=== PATIENT | male | born 1950 | race Two or more races ===

== ENCOUNTER 2025-04-11 17:29 | Inpatient (IN) | payer OTHER ==
[~2025-04-11] VITALS: Ht 182.9 cm; Wt 81.6 kg
[2025-04-11] MEDS: IV NS 0.9% 1,000 ML BAG IV ONE ×3 (17:51→19:13)
[2025-04-11 17:59] LABS: SITE, VBG VBG - N/A; VBG BASE EXCESS -6.0 mmol/L (-2.0-3.0); VBG HCO3 16.9 mmol/L (22.0-29.0); VBG MetHb 0.0 % (0.5-1.5); VBG OXYGEN SATURATION 93.7 % (60.0-85.0); VBG PCO2 26.5 mmHg (38.0-54.0); VBG PH 7.423 (7.320-7.430); VBG PO2 72.7 mmHg (23.0-48.0); VBG TOTAL HEMOGLOBIN 12.4 G/dL (13.5-17.5)
[2025-04-11 18:04] LABS: PLATELET COUNT (AUTO) 413 K/uL (150-450); RED BLOOD CELL COUNT(AUTO) 3.71 MIL/uL (4.5-6.0); RED CELL DISTRIBUTION WIDTH 13.4 % (11.5-15.0); WHITE BLOOD COUNT (AUTO) 10.2 K/uL (4.3-11.0)
[2025-04-11] MEDS ORDERED: INSULIN REGULAR, HUMAN 100 UNIT/ML 10 ML VIAL ONE (18:33)
[2025-04-11 18:37] LABS: CALCIUM, SERUM 8.7 mg/dL (8.5-10.1); CREATININE 1.5 mg/dL (0.6-1.3); SODIUM SERUM 128.0 mmol/L (136-145); UREA NITROGEN, BLOOD 26.0 mg/dL (7-18)
[2025-04-11] MEDS: INSULIN REGULAR, HUMAN 100 UNIT/ML 10 ML VIAL IV ONE (18:40)
[2025-04-11 18:41] LABS: ASPARTATE AMINOTRANSFERASE 16.0 U/L (15-37); TOTAL PROTEIN, SERUM 8.0 g/dL (6.4-8.2)
[2025-04-11 19:38] LABS: APPEARANCE,URINE CLEAR (CLEAR); BLOOD, URINE Trace-intact Ery/uL (NEGATIVE); LEUKOCYTE ESTERASE ,URINE Negative (NEGATIVE); UGLUCOSE >=1000 mg/dL (NEGATIVE)
[2025-04-11 19:39] LABS: NITRITE, URINE NEGATIVE (NEGATIVE)
[2025-04-11 19:40] LABS: ADD URINE CULTURE NO; SQUAMOUS EPITHELIAL CELL,UR Rare /HPF (None Seen)
[2025-04-11 21:24] LABS: CALCIUM, SERUM 8.1 mg/dL (8.5-10.1); CREATININE 1.3 mg/dL (0.6-1.3); SODIUM SERUM 136.0 mmol/L (136-145); UREA NITROGEN, BLOOD 21.0 mg/dL (7-18)
[2025-04-11] MEDS ORDERED: MAG HYDROX/AL HYDROX/SIMETH 30 ML UDC PO PRN (21:30)
[2025-04-11] MEDS ORDERED: DEXTROSE 50%-WATER 50 ML DISP.SYRIN IV PRN ×2 (21:30)
[2025-04-11] MEDS ORDERED: ZOLPIDEM TARTRATE 5 MG TABLET PO PRN (21:30)
[2025-04-11] MEDS ORDERED: Z GUARD REMEDY 4 OZ OINT TP PRN (21:30)
[2025-04-11] MEDS ORDERED: MAGNESIUM HYDROXIDE 30 ML UDC PO PRN (21:30)
[2025-04-11] MEDS ORDERED: BLOOD SUGAR DIAGNOSTIC 1 EACH STRIP VI SCH (22:00)
[2025-04-11 22:45] VITALS: BP 123/65; TEMP 97.5; O2SAT 96
[2025-04-11] MEDS: ENOXAPARIN SODIUM 40 MG/0.4 ML DISP.SYRIN SQ SCH (23:28)
[2025-04-11] MEDS: INSULIN GLARGINE, 100 UNIT/ML CARTRIDGE SQ SCH (23:34)
[2025-04-12] VITALS: BP 133/69; TEMP 97.9; O2SAT 98
[2025-04-12] MEDS: BLOOD SUGAR DIAGNOSTIC 1 EACH STRIP IN SCH (00:59)
[2025-04-12] MEDS: *INSULIN REGULAR(HUMULIN R)HUM 100 UNIT/ML VIAL SQ PRN (01:08)
[2025-04-12] MEDS: IV NS 0.9% 1,000 ML IV PRN (01:10)
[2025-04-12 04:00] VITALS: BP 124/68; TEMP 97.5; O2SAT 100
[2025-04-12 07:11] LABS: PLATELET COUNT (AUTO) 293 K/uL (150-450); RED BLOOD CELL COUNT(AUTO) 3.09 MIL/uL (4.5-6.0); RED CELL DISTRIBUTION WIDTH 13.4 % (11.5-15.0); WHITE BLOOD COUNT (AUTO) 6.0 K/uL (4.3-11.0)
[2025-04-12 07:30] VITALS: BP 133/61; TEMP 98.1; O2SAT 96
[2025-04-12 08:38] LABS: CALCIUM, SERUM 8.1 mg/dL (8.5-10.1); CREATININE 1.1 mg/dL (0.6-1.3); PHOSPHORUS 2.5 mg/dL (2.5-4.9); SODIUM SERUM 139.0 mmol/L (136-145); UREA NITROGEN, BLOOD 17.0 mg/dL (7-18)
[2025-04-12] MEDS: PANTOPRAZOLE 40 MG TABLET.DR PO SCH (09:45)
[2025-04-12] MEDS: INSULIN REGULAR, HUMAN 100 UNIT/ML 3 ML VIAL SQ PRN (09:54)
[2025-04-12 20:00] VITALS: BP 135/78; TEMP 98.1; O2SAT 97
[2025-04-12] MEDS: ACETAMINOPHEN 325 MG TABLET PO PRN (20:01)
[2025-04-12] MEDS: HYDROCODONE/APAP 10/325MG TABLET PO ONE (23:20)
[2025-04-13] VITALS: BP 124/62; TEMP 97.9; O2SAT 95
[2025-04-13 04:00] VITALS: BP 152/70; TEMP 97.8; O2SAT 97
[2025-04-13 04:01] VITALS: BP 150/70; TEMP 97.8; O2SAT 97
[2025-04-13 08:00] VITALS: BP 139/70; TEMP 97.5; O2SAT 98
[2025-04-13] MEDS: ONDANSETRON HCL/PF 4 MG/2 ML VIAL IVP PRN (12:33)
[2025-04-13 14:00] VITALS: BP 154/91; TEMP 97.9; O2SAT 97
[2025-04-13 20:00] VITALS: BP 145/83; TEMP 97.6; O2SAT 98
[2025-04-13] MEDS: HYDROCODONE/APAP 10/325MG TABLET PO ONE (22:30)
[2025-04-13] MEDS ORDERED: NALOXONE HCL 0.4 MG/ML AMPUL IV PRN (22:30)
[2025-04-13] MEDS ORDERED: oxyCODONE HCL SR 10MG TAB.SR.12H PO SCH (22:30)
[2025-04-13] MEDS: oxyCODONE IR immediate release 5 MG TABLET PO SCH (23:27)
[2025-04-14] MEDS: GABAPENTIN 100 MG CAPSULE PO SCH (01:01)
[2025-04-14 08:00] VITALS: BP 142/63; TEMP 97.9; O2SAT 99
[2025-04-14] MEDS ORDERED: DOSING PER PHARMACY-VANCOMYCIN IV XX PRN (15:30)
[2025-04-14 16:00] VITALS: BP 162/80; TEMP 98.4; O2SAT 98
[2025-04-14] MEDS ORDERED: CEFTRIAXONE 1 G in IV D5W 50 ML IV SCH (16:00)
[2025-04-14 16:13] LABS: PLATELET COUNT (AUTO) 271 K/uL (150-450); RED BLOOD CELL COUNT(AUTO) 3.15 MIL/uL (4.5-6.0); RED CELL DISTRIBUTION WIDTH 13.8 % (11.5-15.0); WHITE BLOOD COUNT (AUTO) 5.1 K/uL (4.3-11.0)
[2025-04-14 16:18] VITALS: BP 162/80; TEMP 98.4; O2SAT 98
[2025-04-14] MEDS ORDERED: DOSING PER PHARMACY-CEFEPIME IVPB XX PRN (16:30)
[2025-04-14] MEDS ORDERED: CEFEPIME 1 GM in IV D5W 50 ML IV SCH (16:30)
[2025-04-14 17:10] LABS: CALCIUM, SERUM 8.4 mg/dL (8.5-10.1); CREATININE 0.9 mg/dL (0.6-1.3); SODIUM SERUM 142.0 mmol/L (136-145); UREA NITROGEN, BLOOD 11.0 mg/dL (7-18)
[2025-04-14] MEDS: VANCOMYCIN 1 GM in IV D5W 250ml IV ONE (18:04)
[2025-04-14] MEDS: VANCOMYCIN 750 MG in IV D5W 250 ML IV ONE (19:53)
[2025-04-14 20:00] VITALS: BP 140/72; TEMP 98.4; O2SAT 97
[2025-04-14] MEDS: CEFEPIME 1 GM in IV D5W 50 ML IV SCH (20:36)
[2025-04-15] MEDS: VANCOMYCIN 750 MG in IV D5W 250 ML IV SCH (05:38)
[2025-04-15 07:12] LABS: CALCIUM, SERUM 8.0 mg/dL (8.5-10.1); CREATININE 0.9 mg/dL (0.6-1.3); SODIUM SERUM 141.0 mmol/L (136-145); UREA NITROGEN, BLOOD 11.0 mg/dL (7-18)
[2025-04-15 08:00] VITALS: BP 151/73; TEMP 97.9; O2SAT 100
[2025-04-15] MEDS: CLOTRIMAZOLE/BETAMETASONE DIPROPIONATE 15 GM TUBE TP SCH (10:36)
[2025-04-15 16:00] VITALS: BP 152/84; TEMP 98.1; O2SAT 95
[2025-04-15 19:13] VITALS: BP 168/94
[2025-04-15] MEDS: CLONIDINE HCL 0.1 MG TABLET PO ONE (19:13)
== END 2025-04-15 19:38 | DRG 420 ==
LOC: ER 17:48 → TELE 21:38 → MED 04-13 10:05
DX: E11.00 Type 2 diabetes mellitus with hyperosmolarity without nonketotic hyperglycemic-hyperosmolar coma (NKHHC) (principal); N17.0 Acute kidney failure with tubular necrosis; E44.0 Moderate protein-calorie malnutrition; E11.65 Type 2 diabetes mellitus with hyperglycemia; D64.9 Anemia, unspecified; N43.3 Hydrocele, unspecified; N45.2 Orchitis; N50.89 Other specified disorders of the male genital organs; Z68.24 Body mass index [BMI] 24.0-24.9, adult; Z79.4 Long term (current) use of insulin; Z86.73 Personal history of transient ischemic attack (TIA), and cerebral infarction without residual deficits; N50.1 Vascular disorders of male genital organs; Z90.79 Acquired absence of other genital organ(s)
CPT/HCPCS: 36415; 71045-TC; 76870-TC; 80048-TC; 80076-TC; 81001; 82803-TC; 82962-TC; 83735-TC; 84100-TC; 85025-TC; 87040-TC; 87081-TC; 87086-TC; 87186-TC; 92526; 92611-TC; A4223; G0378; J0692; J0696; J1650; J1815; J2405; J3370; J3371; J7030; J7042; J7060